=== PATIENT | male | born 1935 | race Caucasian/White ===

== ENCOUNTER 2018-09-01 08:55 | Inpatient (IN) ==
[2018-09-01] MEDS ORDERED: TUSSIONEX PENNKINETIC SUSP PO PRN (10:33)
[2018-09-01] MEDS ORDERED: NS 1/2 1000 ML IV 1,000 ML IV ONE (11:13)
[2018-09-01] MEDS: NS 1/2 1000 ML IV 1,000 ML IV SCH (11:17)
[2018-09-01 11:21] LABS: BASOPHILS # (AUTO) 0.1 X10^3/uL (0.0-0.1); BASOPHILS % (AUTO) 0.6 % (0.2-1.0); EOSINOPHILS # (AUTO) 0.1 x10^3/uL (0.0-0.2); EOSINOPHILS % (AUTO) 0.9 % (0.9-2.9); HEMATOCRIT 31.8 % (42.0-54.0); HEMOGLOBIN 9.6 g/dL (13.5-18.0); LYMPHOCYTES # (AUTO) 3.7 X10^3/uL (1.3-2.9); MEAN CORPUSCULAR HEMOGLOBIN 20.1 pg (27.0-34.0); MEAN CORPUSCULAR HGB CONC 30.1 g/dL (33.0-35.0); MEAN CORPUSCULAR VOLUME 66.9 fL (80.0-100.0); MEAN PLATELET VOLUME 7.1 fL (7.4-11.0); MONOCYTES # (AUTO) 0.4 x10^3/uL (0.3-0.8); MONOCYTES % (AUTO) 3.2 % (0.0-13.0); NEUTROPHILS % (AUTO) 65.3 % (42.0-75.0); PLATELET COUNT 317 X10^3/uL (150.0-450.0); RED BLOOD COUNT 4.76 X10^6/uL (4.7-6.0); RED CELL DISTRIBUTION WIDTH 20.3 % (11.6-16.5); WHITE BLOOD COUNT 12.2 X10^3/uL (3.6-10.0)
[2018-09-01 11:38] LABS: B-TYPE NATRIURETIC PEPTIDE 276 pg/mL (0-79)
[2018-09-01 11:39] LABS: ALANINE AMINOTRANSFERASE 20 Units/L (12-78); ALBUMIN 3.6 g/dL (3.4-5.0); ALKALINE PHOSPHATASE 148 Units/L (46-116); ASPARTATE AMINO TRANSFERASE 16 Units/L (15-37); BLOOD UREA NITROGEN 11 mg/dL (7-18); CALCIUM 8.8 mg/dL (8.5-10.1); CARBON DIOXIDE 29.7 mmol/L (21-32); CHLORIDE 99 mmol/L (98-107); CKMB % 3.1 % (<4); COR NA(FOR HYPERGLY) 141 mmol/L (136-145); CREATINE KINASE 32 Units/L (39-308); CREATINE KINASE MB < 1.0 ng/mL (0-4.0); CREATININE 1.03 mg/dL (0.70-1.30); SODIUM 141 mmol/L (136-145); TOTAL PROTEIN 7.2 g/dL (6.4-8.2); TROPONIN I < 0.02 ng/mL (0-1.5); eGFR NON BLACK RACES > 60 (>60)
[2018-09-01 11:51] LABS: ANISOCYTOSIS 1+; HYPOCHROMASIA 2+; MICROCYTOSIS 1+; PLATELET MORPHOLOGY COMMENT NORMAL (NORMAL)
[2018-09-01] MEDS: LASIX IVP SCH ×2 (11:51→20:49)
[2018-09-01] MEDS ORDERED: KLOR-CON PO PRN (11:55)
[2018-09-01] MEDS ORDERED: POTASSIUM CHL 40 MEQ/NS 0.45% 500 ML IV PRN (11:55)
[2018-09-01] MEDS ORDERED: POTASSIUM CHL 60 MEQ/NS 0.45% 500 ML IV PRN (11:55)
[2018-09-01] MEDS ORDERED: MICRO K EXTEN CAP 10 MEQ PO PRN (11:55)
[2018-09-01] MEDS ORDERED: POTASSIUM CHLORIDE LIQ 20 MEQ UDC PO PRN (11:55)
[2018-09-01] MEDS ORDERED: K-RIDER 10 MEQ/NS 100 ML 10 MEQ/100 ML BAG IV PRN (11:55)
[2018-09-01] MEDS: PROVENTIL NEB TX 0.083% 2.5MG/ 3ML NEB SCH ×2 (12:00→21:19)
[2018-09-01 12:07] LABS: ABG BASE EXCESS 6.8 mmol/L (-2.0-2.0)
[2018-09-01 12:08] LABS: ABG HCO3 31.3 mmol/L (22-26)
[2018-09-01] MEDS ORDERED: XOPENEX 1.25 MG/3 ML NEBULE NEB SCH (12:15)
--- NOTE | 2018-09-01 12:17 | RAD ---
Examination: Chest, PA and lateral views History: Pneumonia SOB Comparison reference chest CT, 04/22/2015 Findings: The heart is enlarged with ventricular hypertrophy. The lungs are hyperaerated and there is a diffuse bilateral interstitial process consistent with fibrosis. There is pleural scarring at the left diaphragm surface. Hiatal hernia is suggested. There is a 1.4 cm stellate density in the right upper lung. Impression: 1. Cardiomegaly. COPD/emphysema with pulmonary fibrosis. 2. Hiatal hernia. 3. Nodular density right upper lobe may represent 1st rib costal cartilage. Pulmonary nodule not excluded. Repeat AP and PA views of chest recommended to confirm or exclude pathology. Reported By:
[2018-09-01 12:24] VITALS: BMI 22.1
[2018-09-01] MEDS: LEVAQUIN PREMIX IV 500 MG 500 MG/100 ML BAG IV SCH (12:37)
[2018-09-01 15:00] LABS: CKMB % 3.3 % (<4); CREATINE KINASE 30 Units/L (39-308); CREATINE KINASE MB < 1.0 ng/mL (0-4.0); TROPONIN I < 0.02 ng/mL (0-1.5)
[2018-09-01] MEDS ORDERED: MAALOX or MYLANTA PO PRN (15:09)
[2018-09-01] MEDS: K-DUR TAB 20 MEQ PO PRN ×2 (15:18→20:49)
[2018-09-01] MEDS: ROBITUSSIN DM PO SCH ×2 (15:18→20:49)
[2018-09-01 19:06] LABS: CKMB % 3.3 % (<4); CREATINE KINASE MB 1.1 ng/mL (0-4.0); TROPONIN I 0.02 ng/mL (0-1.5)
[2018-09-02] MEDS: PROVENTIL NEB TX 0.083% 2.5MG/ 3ML NEB SCH ×6 (00:53→21:28)
[2018-09-02] MEDS ORDERED: NS 1/2 1000 ML IV 1,000 ML IV ONE (01:28)
[2018-09-02] MEDS: NS 1/2 1000 ML IV 1,000 ML IV SCH (01:57)
[2018-09-02 05:25] LABS: BASOPHILS % (AUTO) 0.3 % (0.2-1.0); EOSINOPHILS # (AUTO) 0.1 x10^3/uL (0.0-0.2); EOSINOPHILS % (AUTO) 1.2 % (0.9-2.9); HEMATOCRIT 25.2 % (42.0-54.0); HEMOGLOBIN 7.7 g/dL (13.5-18.0); LYMPHOCYTES # (AUTO) 2.8 X10^3/uL (1.3-2.9); LYMPHOCYTES % (AUTO) 28.9 % (21.0-51.0); MEAN CORPUSCULAR HEMOGLOBIN 20.6 pg (27.0-34.0); MEAN CORPUSCULAR HGB CONC 30.7 g/dL (33.0-35.0); MEAN CORPUSCULAR VOLUME 67.1 fL (80.0-100.0); MEAN PLATELET VOLUME 7.2 fL (7.4-11.0); MONOCYTES # (AUTO) 0.6 x10^3/uL (0.3-0.8); MONOCYTES % (AUTO) 5.7 % (0.0-13.0); NEUTROPHILS # (AUTO) 6.2 x10^3/uL (2.2-4.8); NEUTROPHILS % (AUTO) 63.9 % (42.0-75.0); PLATELET COUNT 242 X10^3/uL (150.0-450.0); RED BLOOD COUNT 3.76 X10^6/uL (4.7-6.0); RED CELL DISTRIBUTION WIDTH 19.6 % (11.6-16.5); WHITE BLOOD COUNT 9.7 X10^3/uL (3.6-10.0)
[2018-09-02 05:34] LABS: ALANINE AMINOTRANSFERASE 17 Units/L (12-78); ALBUMIN 2.7 g/dL (3.4-5.0); ALKALINE PHOSPHATASE 111 Units/L (46-116); ASPARTATE AMINO TRANSFERASE 13 Units/L (15-37); BLOOD UREA NITROGEN 10 mg/dL (7-18); CHLORIDE 102 mmol/L (98-107); CREATININE 0.98 mg/dL (0.70-1.30); SODIUM 139 mmol/L (136-145); TOTAL PROTEIN 5.6 g/dL (6.4-8.2); eGFR NON BLACK RACES > 60 (>60)
--- NOTE | 2018-09-02 05:47 | RAD ---
History: Shortness of breath Study: Portable AP chest Comparison: Yesterday Findings: The heart size is prominent. There is a small hiatal hernia as before. There is chronic diffuse interstitial lung disease. There is a focal density in the right upper lobe shown by prior chest CT of April 22, 2015 to be a nodule posteriorly in the right upper lobe. Impression: Chronic interstitial lung disease and some pulmonary fibrosis. Hiatal hernia. No acute disease. Reported By:
[2018-09-02 06:07] LABS: PLATELET MORPHOLOGY COMMENT NORMAL (NORMAL)
[2018-09-02 06:08] LABS: ANISOCYTOSIS SLIGHT; HYPOCHROMASIA 2+; MICROCYTOSIS 1+; POIKILOCYTOSIS 1+
[2018-09-02] MEDS: ROBITUSSIN DM PO SCH ×5 (08:20→21:52)
[2018-09-02] MEDS: LEVAQUIN PREMIX IV 500 MG 500 MG/100 ML BAG IV SCH (08:20)
--- NOTE | 2018-09-02 08:55 | DR.UPDATE ---
H&P Update History and Physical Update: WAS SEEN IN THE OFFICE TODAY FOR COMPLAINTS OF PERSISTENT, PRODUCTIVE COUGH AND SHORTNESS OF BREATH. HE WAS ADMITTED ON THE PNEUMONIA PROTOCOL FOR FURTHER EVALUATION AND TREATMENT. A H&P WAS COMPLETED PRIOR TO ADMISSION. PATIENT HAS BEEN SEEN AND EXAMINED WITH NO CHANGES NOTED TO H&P. Changes noted: NO Yes with the following:
[2018-09-02] MEDS ORDERED: TYLENOL 325 MG TAB PO PRN (10:13)
[2018-09-02] MEDS ORDERED: BENADRYL INJ 50 MG VIAL IVP PRN (10:13)
[2018-09-02] MEDS: PEPCID 20 MG IV PREMIX* 20 MG/50 ML BAG IV SCH ×2 (11:11→21:53)
[2018-09-02] MEDS: PROTONIX INJ 40 MG VIAL IVP SCH ×2 (11:11→21:44)
[2018-09-02] MEDS: FORTAZ or TAZICEF VIAL INJ IVP SCH ×3 (11:12→21:43)
[2018-09-02] MEDS: LEVSIN/MAALOX/LIDOC VISC PO SCH ×4 (11:12→21:51)
[2018-09-02] MEDS: SOLU-Medrol 40 MG VIAL IVP SCH ×3 (11:24→21:48)
[2018-09-02] MEDS: LASIX IVP SCH ×2 (11:39→21:48)
[2018-09-02] MEDS: PULMICORT NEB TX 0.5 MG NEB SCH ×2 (12:05→21:28)
[2018-09-02] MEDS: NS 500 ML IV 500 ML IV ONE (16:14)
[2018-09-02] MEDS ORDERED: CARDIZEM INJ 125 MG VIAL 125 MG in NS 100 ML IV 100 ML IV PRN (18:44)
[2018-09-02] MEDS ORDERED: CARDIZEM INJ 50 MG VIAL IVP ONE (21:07)
[2018-09-02] MEDS ORDERED: CARDIZEM INJ 50 MG VIAL ONE (21:27)
[2018-09-02] MEDS: ZOCOR TAB 20 MG PO SCH (21:53)
[2018-09-02] MEDS: FLOMAX PO SCH (21:53)
[2018-09-02] MEDS: NORVASC TAB 5 MG PO SCH (21:53)
[2018-09-02] MEDS: XARELTO PO SCH (22:35)
[2018-09-03] MEDS: XOPENEX 1.25 MG/3 ML NEBULE NEB SCH ×4 (00:37→17:37)
[2018-09-03 01:16] LABS: HEMATOCRIT 32.4 % (42.0-54.0); HEMOGLOBIN 10.2 g/dL (13.5-18.0)
--- NOTE | 2018-09-03 05:14 | RAD ---
Examination: Portable AP chest History: SOB Comparison 09/02/2018 Findings: There is no significant change since 1 day prior. Stable heart size, chronic interstitial fibrotic scarring, hiatal hernia and ill defined nodular density right upper lobe. Impression: No change. Reported By:
[2018-09-03] MEDS ORDERED: NS 1/2 1000 ML IV 1,000 ML IV ONE ×2 (05:59→19:29)
[2018-09-03] MEDS: FORTAZ or TAZICEF VIAL INJ IVP SCH ×3 (06:01→21:01)
[2018-09-03] MEDS: NS 1/2 1000 ML IV 1,000 ML IV SCH ×4 (06:03→19:34)
[2018-09-03] MEDS: SOLU-Medrol 40 MG VIAL IVP SCH ×3 (06:05→21:01)
[2018-09-03 06:09] LABS: BASOPHILS % (AUTO) 0 % (0.2-1.0); HEMATOCRIT 30.7 % (42.0-54.0); HEMOGLOBIN 9.8 g/dL (13.5-18.0); LYMPHOCYTES # (AUTO) 2.4 X10^3/uL (1.3-2.9); LYMPHOCYTES % (AUTO) 27.6 % (21.0-51.0); MEAN CORPUSCULAR HEMOGLOBIN 22.1 pg (27.0-34.0); MEAN CORPUSCULAR VOLUME 69.1 fL (80.0-100.0); MEAN PLATELET VOLUME 7.1 fL (7.4-11.0); MONOCYTES # (AUTO) 0.1 x10^3/uL (0.3-0.8); MONOCYTES % (AUTO) 0.9 % (0.0-13.0); NEUTROPHILS # (AUTO) 6.3 x10^3/uL (2.2-4.8); NEUTROPHILS % (AUTO) 71.5 % (42.0-75.0); PLATELET COUNT 229 X10^3/uL (150.0-450.0); RED BLOOD COUNT 4.45 X10^6/uL (4.7-6.0); WHITE BLOOD COUNT 8.8 X10^3/uL (3.6-10.0)
[2018-09-03 06:17] LABS: ALANINE AMINOTRANSFERASE 18 Units/L (12-78); ALBUMIN 2.9 g/dL (3.4-5.0); ALKALINE PHOSPHATASE 106 Units/L (46-116); ASPARTATE AMINO TRANSFERASE 15 Units/L (15-37); BLOOD UREA NITROGEN 14 mg/dL (7-18); CALCIUM 8.2 mg/dL (8.5-10.1); CARBON DIOXIDE 27.8 mmol/L (21-32); CHLORIDE 101 mmol/L (98-107); COR CA(FOR HYPOALB) 9.1 mg/dL (8.5-10.1); COR NA(FOR HYPERGLY) 138 mmol/L (136-145); CREATININE 0.94 mg/dL (0.70-1.30); SODIUM 137 mmol/L (136-145); TOTAL PROTEIN 5.8 g/dL (6.4-8.2); eGFR NON BLACK RACES > 60 (>60)
[2018-09-03 06:19] LABS: ANISOCYTOSIS 1+; HYPOCHROMASIA 1+; MICROCYTOSIS 1+; PLATELET MORPHOLOGY COMMENT NORMAL (NORMAL)
[2018-09-03] MEDS: K-DUR TAB 20 MEQ PO PRN (06:30)
[2018-09-03] MEDS ORDERED: NS 500 ML IV 500 ML IV ONE (09:02)
[2018-09-03] MEDS: LASIX IVP SCH ×2 (09:10→20:50)
[2018-09-03] MEDS: PEPCID 20 MG IV PREMIX* 20 MG/50 ML BAG IV SCH ×2 (09:10→20:49)
[2018-09-03] MEDS: NORVASC TAB 5 MG PO SCH (09:10)
[2018-09-03] MEDS: PROTONIX INJ 40 MG VIAL IVP SCH ×2 (09:10→20:50)
[2018-09-03] MEDS: ROBITUSSIN DM PO SCH ×4 (09:10→20:50)
[2018-09-03] MEDS: LEVSIN/MAALOX/LIDOC VISC PO SCH ×4 (09:10→20:50)
[2018-09-03] MEDS: LEVAQUIN PREMIX IV 500 MG 500 MG/100 ML BAG IV SCH (09:17)
[2018-09-03] MEDS: NS 500 ML IV 500 ML IV ONE (09:17)
[2018-09-03] MEDS: CARDIZEM SR 120 MG PO SCH ×2 (11:15→20:49)
[2018-09-03] MEDS: PULMICORT NEB TX 0.5 MG NEB SCH ×2 (11:54→21:45)
[2018-09-03] MEDS ORDERED: NS 50 ML IV 50 ML IV ONE ×2 (13:21→13:26)
--- NOTE | 2018-09-03 16:34 | CT ---
HISTORY: Shortness of breath Study: CT chest with contrast Comparison: Chest CT 04/22/2015 Technique: Multiple axial images of the chest were obtained from the thoracic inlet to the upper abdomen after the administration of IV contrast. Dose reduction techniques including Automated Exposure Control (AEC) and adjustment of mA and kV were utilized. Findings: There is cardiomegaly noted with atherosclerotic disease of coronary arteries. There are trace bilateral pleural effusions. There is large hiatal hernia partial intrathoracic stomach. There are advanced emphysematous changes present with probable air trapping. There is a spiculated mass at the right lung apex that measures 2.6 x 2.5 cm on axial image 22 that is new from prior study concerning for malignancy. No definite adenopathy or satellite nodules identified. Aorta is calcified with borderline aneurysmal dilation of the ascending aorta up to 4.1 cm measured on coronal image 20. No evidence of dissection. There are degenerative changes of the bony thorax with compression fractures at T3, T4 and L1 that are chronic. The visualized portions of the upper abdomen are grossly unremarkable. IMPRESSION: 1. Spiculated mass at the right lung apex measuring 2.6 x 2.5 cm. Cannot exclude malignancy. Further evaluation with PET scan and/or tissue sampling is recommended. 2. Advanced emphysematous disease with trace bilateral pleural effusions. 3. Cardiomegaly and coronary atherosclerotic disease. 4. 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 5. Large hiatal hernia. Reported By:
[2018-09-03] MEDS ORDERED: LANOXIN INJ IVP ONE (18:44)
[2018-09-03] MEDS: XARELTO PO SCH (19:17)
--- NOTE | 2018-09-03 19:23 | PCM.PROG ---
Progress Note - Progress Note for Day of Date of Exam: 09/02/18 - Subjective Subjective: WAS ADMITTED FOR CHF AND PNEUMONIA. TODAY, HE IS ALERT AND ORIENTED, LYING IN BED ON MORNING ROUNDS. HE CONTINUES WITH A PRODUCTIVE COUGH AND SHORTNESS OF BREATH. ON EXAMINATION, HE IS NOTED TO BE TACHYCARDIC. RHYTHM IS IRREGULAR. 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 BILATERAL LUNGS ARE NOTED WITH SCATTERED WHEEZING AND RHONCHI. ABDOMEN IS ROUND, SOFT, AND NON-TENDER WITH NORMAL BOWEL SOUNDS NOTED IN ALL QUADRANTS. HE IS NOTED WITH 1+ PITTING EDEMA TO LOWER EXTREMITIES. HIS VITLAS THIS MORNING ARE 98.1-92-18-95%-111-119/65. LABS WERE OBTAINED. ABNORMAL LAB VALUES INCLUDE THE FOLLOWING: RBC 3.76, HGB 7.7, HCT 25.2, CALCIUM 8.0, AST 13, TOTAL PROTEIN 5.6, ALBUMIN 2.7. SPUTUM AND BLOOD CULTURES ARE PENDING. A CHEST XRAY WAS OBTAINED TODAY AND REVEALED: The heart size is prominent. There is a small hiatal hernia as before. There is chronic diffuse interstitial lung disease. There is a focal density in the right upper lobe shown by prior chest CT of April 22, 2015 to be a nodule posteriorly in the right upper lobe. AN ECHO WAS OBTAINED YESTERDAY AND REVEALED AN EJECTION FRACTION OF 50%, MODERATELY ENLARGED RIGHT SIDE HEART WITH MOD/SEVERE TR. RIGHT SIDED HEART FAILURE. TODAY, WE WILL TRANSFUSE 2 UNITS OF PACKED RED BLOOD CELLS AND TRANSFER HIM TO THE INTENSIVE CARE UNIT AND PLACE ON A CARDIZEM DRIP. WE WILL START PEPCID AND PROTONIX IV, LASIX 20MG IV BID, SOLU-MEDROL 80MG IV TID, PULMICORT NEB TX, AND OBTAIN STOOLS FOR OCCULT BLOOD. OTHERWISE, WE WILL CONTINUE WITH IV HYDRATION AND ANTIBIOTICS. WE PLAN TO FOLLOW UP WITH AM LABS AND CONTINUE TO MONITOR. - Past Medical Family Social History Past Med/Fam/Surg Hx: No changes since H&P Allergies: Allergies No Known Drug Allergies Allergy (Verified 09/01/18 10:53) - Review of Systems ROS: No change since H&P - Vital Signs and I&O's Vital Signs: Temperature 98.8 F Pulse Rate [Left Brachial] 94 Pulse Rate 92 Respiratory Rate 24 Blood Pressure [Left Arm] 104/67 O2 Sat by Pulse Oximetry 95 Intake and Output: Intake & Output 02/07/19 02/08/19 02/09/19 02/10/19 11:59 11:59 11:59 11:59 Intake Total 704 / 704 2388.1 / 2388.1 1270 / 1270 Output Total 1775 / 1775 2851 / 2851 950 / 950 Balance -1071 / -1071 -462.9 / -462.9 320 / 320 - Physical Exam Oriented: Normal Eyes: Normal Ear: Normal Nose: Normal Throat: Normal Respiratory: Generalized, Wheezes, Rhonchi Cardiovascular: Tachycardia, Irregular, Edema : Normal Auscultation: Bowel Sounds: Normal Palpation: Normal Tenderness: Normal Skin: Normal Musculoskeletal: Normal Psychiatric: Normal Mood Description: Calm Affect: Normal Speech Pattern: Clear, Appropriate - Laboratory and Diagnostics Result Diagrams: 09/03/18 05:28 09/03/18 05:28 Labs: 09/01/18 11:00 Blood Blood Culture - Preliminary 09/01/18 11:05 Blood Blood Culture - Preliminary 09/01/18 13:24 Sputum - Expectorated Sputum Sputum Culture - Preliminary Klebsiella Pneumoniae 09/01/18 13:24 Sputum - Expectorated Sputum - Final Laboratory WBC 8.8 X10^3/uL (3.6-10.0) 09/03/18 05:28 RBC 4.45 X10^6/uL (4.7-6.0) L 09/03/18 05:28 Hgb 9.8 g/dL (13.5-18.0) L 09/03/18 05:28 Hct 30.7 % (42.0-54.0) L 09/03/18 05:28 MCV 69.1 fL (80.0-100.0) L 09/03/18 05:28 MCH 22.1 pg (27.0-34.0) L 09/03/18 05:28 MCHC 32.0 g/dL (33.0-35.0) L 09/03/18 05:28 RDW 22.0 % (11.6-16.5) H 09/03/18 05:28 Plt Count 229 X10^3/uL (150.0-450.0) 09/03/18 05:28 Plt Count Comment Adequate (ADEQUATE) 09/03/18 05:28 MPV 7.1 fL (7.4-11.0) L 09/03/18 05:28 Neut % (Auto) 71.5 % (42.0-75.0) 09/03/18 05:28 Lymph % (Auto) 27.6 % (21.0-51.0) 09/03/18 05:28 [place] % (Auto) 0.9 % (0.0-13.0) 09/03/18 05:28 Eos % (Auto) 0.0 % (0.9-2.9) L 09/03/18 05:28 Baso % (Auto) 0 % (0.2-1.0) L 09/03/18 05:28 Neut # (Auto) 6.3 x10^3/uL (2.2-4.8) H 09/03/18 05:28 Lymph # (Auto) 2.4 X10^3/uL (1.3-2.9) 09/03/18 05:28 [place] # (Auto) 0.1 x10^3/uL (0.3-0.8) L 09/03/18 05:28 Eos # (Auto) 0.0 x10^3/uL (0.0-0.2) 09/03/18 05:28 Baso # (Auto) 0.0 X10^3/uL (0.0-0.1) 09/03/18 05:28 Absolute Nucleated RBC 0.0 /100WBC 09/03/18 05:28 Plt Morphology Comment Normal (NORMAL) 09/03/18 05:28 RBC Morphology Abnormal (NORMAL) 09/03/18 05:28 Hypochromasia 1+ A 09/03/18 05:28 Poikilocytosis 1+ A 09/02/18 04:28 Anisocytosis 1+ A 09/03/18 05:28 Microcytosis 1+ A 09/03/18 05:28 Sample Site L br 09/01/18 12:02 ABG pH 7.470 (7.35-7.45) H 09/01/18 12:02 ABG pCO2 43.0 mmHg (35.0-45.0) 09/01/18 12:02 ABG pO2 61.0 mmHg (80.0-100.0) L 09/01/18 12:02 ABG HCO3 31.3 mmol/L (22-26) H* 09/01/18 12:02 ABG O2 Saturation 93.0 % (90-100) 09/01/18 12:02 ABG Base Excess 6.8 mmol/L (-2.0-2.0) H 09/01/18 12:02 Ck Test Na 09/01/18 12:02 A-a Gradient 35.0 mmHg 09/01/18 12:02 FiO2 21.0 09/01/18 12:02 Blood Gas Comments Loreta well gmb 09/01/18 12:02 Sodium 137 mmol/L (136-145) 09/03/18 05:28 Corrected Sodium 138 mmol/L (136-145) 09/03/18 05:28 Potassium 3.7 mmol/L (3.5-5.1) 09/03/18 05:28 Chloride 101 mmol/L (98-107) 09/03/18 05:28 Carbon Dioxide 27.8 mmol/L (21-32) 09/03/18 05:28 BUN 14 mg/dL (7-18) 09/03/18 05:28 Creatinine 0.94 mg/dL (0.70-1.30) 09/03/18 05:28 Est GFR (MDRD) Af Amer > 60 (>60) 09/03/18 05:28 Est GFR (MDRD) Non-Af > 60 (>60) 09/03/18 05:28 Glucose 154 mg/dL (65-99) H 09/03/18 05:28 Calcium 8.2 mg/dL (8.5-10.1) L 09/03/18 05:28 Corrected Calcium 9.1 mg/dL (8.5-10.1) 09/03/18 05:28 Magnesium 2.0 mg/dL (1.7-2.9) 09/01/18 11:00 Total Bilirubin 1.20 mg/dL (0.2-1.0) H 09/03/18 05:28 AST 15 Units/L (15-37) 09/03/18 05:28 ALT 18 Units/L (12-78) 09/03/18 05:28 Alkaline Phosphatase 106 Units/L (46-116) 09/03/18 05:28 Creatine Kinase 33 Units/L (39-308) L 09/01/18 18:33 CK-MB (CK-2) 1.1 ng/mL (0-4.0) 09/01/18 18:33 CK/CKMB % Calc 3.3 % (<4) 09/01/18 18:33 Troponin I 0.02 ng/mL (0-1.5) 09/01/18 18:33 B-Natriuretic Peptide 276 pg/mL (0-79) H 09/01/18 11:00 Total Protein 5.8 g/dL (6.4-8.2) L 09/03/18 05:28 Albumin 2.9 g/dL (3.4-5.0) L 09/03/18 05:28 Globulin 2.9 g/dL (2.5-4.5) 09/03/18 05:28 Albumin/Globulin Ratio 1.0 Ratio (1.1-2.1) L 09/03/18 05:28 Stool Description 75g,formed,soft,dark 09/03/18 09:50 Stl Occult Blood (IFOB) Negative (NEGATIVE) 09/03/18 09:50 Blood Type A POSITIVE 09/02/18 10:35 Antibody Screen Negative 09/02/18 10:35 Crossmatch See Detail 09/02/18 10:35 - Plan (1) Pneumonia Status: Acute Qualifiers: Pneumonia type: due to unspecified organism Laterality: unspecified laterality Lung location: unspecified part of lung Qualified Code(s): J18.9 - Pneumonia, unspecified organism Plan: IV FORTAZ, IV LEVAQUIN, RESPIRATORY TX, SUPPLEMENTAL OXYGEN, CONTINUE TO MONITOR (2) CHF (congestive heart failure) Status: Acute Qualifiers: Heart failure chronicity: acute on chronic Plan: LASIX 20MG IV BID, SUPPLEMENTAL OXYGEN, CONTINUE TO MONITOR (3) Atrial fibrillation Status: Acute Qualifiers: Atrial fibrillation type: chronic Qualified Code(s): I48.2 - Chronic atrial fibrillation Plan: CARDIZEM DRIP, DIGOXIN 500MCG IV X 1, CONTINUE TO MONITOR (4) Anemia Status: Acute Qualifiers: Anemia type: unspecified type Qualified Code(s): D64.9 - Anemia, unspecified Plan: TRANSFUSE 2 UNITS PRBC, CONTINUE TO MONITOR
[2018-09-03] MEDS: ZOCOR TAB 20 MG PO SCH (20:49)
[2018-09-03] MEDS: FLOMAX PO SCH (20:49)
--- NOTE | 2018-09-03 22:12 | PCM.PROG ---
Progress Note - Progress Note for Day of Date of Exam: 09/03/18 - Subjective Subjective: WAS ADMITTED FOR CHF AND PNEUMONIA. HE RECEIVED TWO UNITS OF BLOOD YESTERDAY FOR ANEMIA. TODAY, HE IS ALERT AND ORIENTED, LYING IN BED ON MORNING ROUNDS. HE CONTINUES WITH A PRODUCTIVE COUGH AND SHORTNESS OF BREATH, BUT REPORTS SLIGHT IMPROVEMENT SINCE YESTERDAY. ON EXAMINATION, HEART RATE IS IRREGULAR. 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 BILATERAL LUNGS CONTINUE WITH SCATTERED WHEEZING AND RHONCHI. ABDOMEN IS ROUND, SOFT, AND NON-TENDER WITH NORMAL BOWEL SOUNDS NOTED IN ALL QUADRANTS. HE IS NOTED TRACE EDEMA TO LOWER EXTREMITIES. HIS VITALS THIS MORNING ARE 98.1-85-18-95%-122/70. LABS WERE OBTAINED. ABNORMAL LAB VALUES INCLUDE THE F OLLOWING: RBC 4.45, HGB 9.8, HCT 30.7, GLUCOSE 154, CALCIUM 8.2, TOTAL BILI 1.20, TOTAL PROTEIN 5.8, ALBUMIN 2.9. SPUTUM CULTURE REPORTS GROWTH OF KLEBSIELLA PNEUMONIAE. IT IS SENSITIVE TO THE ANTIBIOTICS THAT HE IS CURRENTLY RECEIVING. BLOOD CULTURES ARE PENDING. A CHEST XRAY WAS OBTAINED TODAY AND REPORTED NO CHANGE. TODAY, WE WILL DISCONTINUE THE CARDIZEM DRIP AND START CARDIZEM 120MG PO BID, DIGOXIN 0.125MG. WE WILL OBTAIN A CHEST CT WITH CONTRAST TODAY. OTHERWISE, WE WILL CONTINUE WITH IV HYDRATION AND ANTIBIOTICS. WE PLAN TO FOLLOW UP WITH AM LABS AND CONTINUE TO MONITOR. - Past Medical Family Social History Past Med/Fam/Surg Hx: No changes since H&P Allergies: Allergies No Known Drug Allergies Allergy (Verified 09/01/18 10:53) - Review of Systems ROS: No change since H&P - Vital Signs and I&O's Vital Signs: Temperature 98.6 F Pulse Rate [Left Brachial] 88 Pulse Rate 90 Respiratory Rate 23 Blood Pressure [Left Arm] 115/69 O2 Sat by Pulse Oximetry 94 Intake and Output: Intake & Output 09/01/18 09/02/18 09/03/18 09/04/18 11:59 11:59 11:59 11:59 Intake Total 704 / 704 2388.1 / 2388.1 1270 / 1270 Output Total 1775 / 1775 2851 / 2851 950 / 950 Balance -1071 / -1071 -462.9 / -462.9 320 / 320 - Physical Exam Oriented: Normal Eyes: Normal Ear: Normal Nose: Normal Throat: Normal Respiratory: Generalized, Wheezes, Rhonchi Cardiovascular: Tachycardia, Irregular, Edema : Normal Auscultation: Bowel Sounds: Normal Palpation: Normal Tenderness: Normal Skin: Normal Musculoskeletal: Normal Psychiatric: Normal Mood Description: Calm Affect: Normal Speech Pattern: Clear, Appropriate - Laboratory and Diagnostics Result Diagrams: 09/03/18 05:28 09/03/18 05:28 Labs: 09/01/18 11:00 Blood Blood Culture - Preliminary 09/01/18 11:05 Blood Blood Culture - Preliminary 09/01/18 13:24 Sputum - Expectorated Sputum Sputum Culture - Preliminary Klebsiella Pneumoniae 09/01/18 13:24 Sputum - Expectorated Sputum - Final Laboratory WBC 8.8 X10^3/uL (3.6-10.0) 09/03/18 05:28 RBC 4.45 X10^6/uL (4.7-6.0) L 09/03/18 05:28 Hgb 9.8 g/dL (13.5-18.0) L 09/03/18 05:28 Hct 30.7 % (42.0-54.0) L 09/03/18 05:28 MCV 69.1 fL (80.0-100.0) L 09/03/18 05:28 MCH 22.1 pg (27.0-34.0) L 09/03/18 05:28 MCHC 32.0 g/dL (33.0-35.0) L 09/03/18 05:28 RDW 22.0 % (11.6-16.5) H 09/03/18 05:28 Plt Count 229 X10^3/uL (150.0-450.0) 09/03/18 05:28 Plt Count Comment Adequate (ADEQUATE) 09/03/18 05:28 MPV 7.1 fL (7.4-11.0) L 09/03/18 05:28 Neut % (Auto) 71.5 % (42.0-75.0) 09/03/18 05:28 Lymph % (Auto) 27.6 % (21.0-51.0) 09/03/18 05:28 [place] % (Auto) 0.9 % (0.0-13.0) 09/03/18 05:28 Eos % (Auto) 0.0 % (0.9-2.9) L 09/03/18 05:28 Baso % (Auto) 0 % (0.2-1.0) L 09/03/18 05:28 Neut # (Auto) 6.3 x10^3/uL (2.2-4.8) H 09/03/18 05:28 Lymph # (Auto) 2.4 X10^3/uL (1.3-2.9) 09/03/18 05:28 [place] # (Auto) 0.1 x10^3/uL (0.3-0.8) L 09/03/18 05:28 Eos # (Auto) 0.0 x10^3/uL (0.0-0.2) 09/03/18 05:28 Baso # (Auto) 0.0 X10^3/uL (0.0-0.1) 09/03/18 05:28 Absolute Nucleated RBC 0.0 /100WBC 09/03/18 05:28 Plt Morphology Comment Normal (NORMAL) 09/03/18 05:28 RBC Morphology Abnormal (NORMAL) 09/03/18 05:28 Hypochromasia 1+ A 09/03/18 05:28 Poikilocytosis 1+ A 09/02/18 04:28 Anisocytosis 1+ A 09/03/18 05:28 Microcytosis 1+ A 09/03/18 05:28 Sample Site L br 09/01/18 12:02 ABG pH 7.470 (7.35-7.45) H 09/01/18 12:02 ABG pCO2 43.0 mmHg (35.0-45.0) 09/01/18 12:02 ABG pO2 61.0 mmHg (80.0-100.0) L 09/01/18 12:02 ABG HCO3 31.3 mmol/L (22-26) H* 09/01/18 12:02 ABG O2 Saturation 93.0 % (90-100) 09/01/18 12:02 ABG Base Excess 6.8 mmol/L (-2.0-2.0) H 09/01/18 12:02 Ck Test Na 09/01/18 12:02 A-a Gradient 35.0 mmHg 09/01/18 12:02 FiO2 21.0 09/01/18 12:02 Blood Gas Comments Loreta well gmb 09/01/18 12:02 Sodium 137 mmol/L (136-145) 09/03/18 05:28 Corrected Sodium 138 mmol/L (136-145) 09/03/18 05:28 Potassium 3.7 mmol/L (3.5-5.1) 09/03/18 05:28 Chloride 101 mmol/L (98-107) 09/03/18 05:28 Carbon Dioxide 27.8 mmol/L (21-32) 09/03/18 05:28 BUN 14 mg/dL (7-18) 09/03/18 05:28 Creatinine 0.94 mg/dL (0.70-1.30) 09/03/18 05:28 Est GFR (MDRD) Af Amer > 60 (>60) 09/03/18 05:28 Est GFR (MDRD) Non-Af > 60 (>60) 09/03/18 05:28 Glucose 154 mg/dL (65-99) H 09/03/18 05:28 Calcium 8.2 mg/dL (8.5-10.1) L 09/03/18 05:28 Corrected Calcium 9.1 mg/dL (8.5-10.1) 09/03/18 05:28 Magnesium 2.0 mg/dL (1.7-2.9) 09/01/18 11:00 Total Bilirubin 1.20 mg/dL (0.2-1.0) H 09/03/18 05:28 AST 15 Units/L (15-37) 09/03/18 05:28 ALT 18 Units/L (12-78) 09/03/18 05:28 Alkaline Phosphatase 106 Units/L (46-116) 09/03/18 05:28 Creatine Kinase 33 Units/L (39-308) L 09/01/18 18:33 CK-MB (CK-2) 1.1 ng/mL (0-4.0) 09/01/18 18:33 CK/CKMB % Calc 3.3 % (<4) 09/01/18 18:33 Troponin I 0.02 ng/mL (0-1.5) 02/07/19 18:33 B-Natriuretic Peptide 276 pg/mL (0-79) H 09/01/18 11:00 Total Protein 5.8 g/dL (6.4-8.2) L 09/03/18 05:28 Albumin 2.9 g/dL (3.4-5.0) L 09/03/18 05:28 Globulin 2.9 g/dL (2.5-4.5) 09/03/18 05:28 Albumin/Globulin Ratio 1.0 Ratio (1.1-2.1) L 09/03/18 05:28 Stool Description 75g,formed,soft,dark 09/03/18 09:50 Stl Occult Blood (IFOB) Negative (NEGATIVE) 09/03/18 09:50 Blood Type A POSITIVE 09/02/18 10:35 Antibody Screen Negative 09/02/18 10:35 Crossmatch See Detail 09/02/18 10:35 - Plan (1) Pneumonia Status: Acute Qualifiers: Pneumonia type: due to Klebsiella pneumoniae Laterality: unspecified laterality Lung location: unspecified part of lung Qualified Code(s): J15.0 - Pneumonia due to Klebsiella pneumoniae Plan: IV FORTAZ, IV LEVAQUIN, RESPIRATORY TX, SUPPLEMENTAL OXYGEN, CONTINUE TO MONITOR (2) CHF (congestive heart failure) Status: Acute Qualifiers: Heart failure chronicity: acute on chronic Plan: LASIX 20MG IV BID, SUPPLEMENTAL OXYGEN, CONTINUE TO MONITOR (3) Atrial fibrillation Status: Acute Qualifiers: Atrial fibrillation type: chronic Qualified Code(s): I48.2 - Chronic atrial fibrillation Plan: CARDIZEM 120MG PO BID, DIGOXIN 0.125MG PO DAILY, CONTINUE TO MONITOR (4) Anemia Status: Acute Qualifiers: Anemia type: unspecified type Qualified Code(s): D64.9 - Anemia, unspecified Plan: CONTINUE TO MONITOR
[2018-09-04] MEDS: XOPENEX 1.25 MG/3 ML NEBULE NEB SCH ×4 (01:25→18:02)
[2018-09-04] MEDS: ROBITUSSIN DM PO SCH ×5 (02:14→20:40)
[2018-09-04] MEDS: SOLU-Medrol 40 MG VIAL IVP SCH ×3 (05:10→21:10)
[2018-09-04] MEDS: FORTAZ or TAZICEF VIAL INJ IVP SCH ×3 (05:10→21:10)
[2018-09-04 05:56] LABS: BASOPHILS % (AUTO) 0.1 % (0.2-1.0); HEMATOCRIT 31.3 % (42.0-54.0); HEMOGLOBIN 9.7 g/dL (13.5-18.0); LYMPHOCYTES # (AUTO) 2.6 X10^3/uL (1.3-2.9); LYMPHOCYTES % (AUTO) 20.2 % (21.0-51.0); MEAN CORPUSCULAR HEMOGLOBIN 21.7 pg (27.0-34.0); MEAN CORPUSCULAR HGB CONC 30.9 g/dL (33.0-35.0); MEAN CORPUSCULAR VOLUME 70.3 fL (80.0-100.0); MEAN PLATELET VOLUME 7.2 fL (7.4-11.0); MONOCYTES # (AUTO) 0.3 x10^3/uL (0.3-0.8); MONOCYTES % (AUTO) 2.4 % (0.0-13.0); NEUTROPHILS % (AUTO) 77.3 % (42.0-75.0); PLATELET COUNT 226 X10^3/uL (150.0-450.0); RED BLOOD COUNT 4.46 X10^6/uL (4.7-6.0); RED CELL DISTRIBUTION WIDTH 22.1 % (11.6-16.5); WHITE BLOOD COUNT 12.9 X10^3/uL (3.6-10.0)
[2018-09-04 06:18] LABS: ALANINE AMINOTRANSFERASE 30 Units/L (12-78); ALBUMIN 2.8 g/dL (3.4-5.0); ALKALINE PHOSPHATASE 92 Units/L (46-116); ASPARTATE AMINO TRANSFERASE 31 Units/L (15-37); BLOOD UREA NITROGEN 20 mg/dL (7-18); CALCIUM 8.2 mg/dL (8.5-10.1); CARBON DIOXIDE 28.9 mmol/L (21-32); CHLORIDE 102 mmol/L (98-107); COR CA(FOR HYPOALB) 9.2 mg/dL (8.5-10.1); COR NA(FOR HYPERGLY) 138 mmol/L (136-145); CREATININE 1.17 mg/dL (0.70-1.30); DIGOXIN 0.93 ng/mL (0.9-2); SODIUM 137 mmol/L (136-145); TOTAL PROTEIN 5.6 g/dL (6.4-8.2); eGFR NON BLACK RACES > 60 (>60)
[2018-09-04 06:39] LABS: ANISOCYTOSIS 2+; HYPOCHROMASIA 2+; PLATELET MORPHOLOGY COMMENT NORMAL (NORMAL)
[2018-09-04] MEDS ORDERED: NS 1/2 1000 ML IV 1,000 ML IV ONE ×2 (07:51→23:55)
--- NOTE | 2018-09-04 08:16 | RAD ---
HISTORY: Shortness of breath Study: Single-view chest, done portably Comparison: CT chest done 09/03/2018. Findings: Trachea is midline. Heart size is upper normal with aortic uncoiling. There is hyperinflation of the lungs with increased interstitial markings bilaterally and emphysematous changes present involving the lung apices. Findings have the appearance of COPD. There is again a spiculated mass in the right upper lobe measuring about 2 x 2.4 cm. There is atherosclerotic calcification of the aortic arch. No consolidation is seen. The small pleural effusions noted on the recent CT are not large enough to be radiographically apparent. Osseous structures are intact. IMPRESSION: COPD with stellate mass in the right upper lobe region. Reported By:
[2018-09-04] MEDS: LANOXIN PO SCH (08:36)
[2018-09-04] MEDS: LEVSIN/MAALOX/LIDOC VISC PO SCH ×4 (08:36→20:42)
[2018-09-04] MEDS: CARDIZEM SR 120 MG PO SCH ×2 (08:36→20:42)
[2018-09-04] MEDS: PEPCID 20 MG IV PREMIX* 20 MG/50 ML BAG IV SCH ×2 (08:36→20:41)
[2018-09-04] MEDS: LASIX IVP SCH ×2 (08:36→20:41)
[2018-09-04] MEDS: NORVASC TAB 5 MG PO SCH (08:37)
[2018-09-04] MEDS: NS 1/2 1000 ML IV 1,000 ML IV SCH (08:38)
[2018-09-04] MEDS: LEVAQUIN PREMIX IV 500 MG 500 MG/100 ML BAG IV SCH (08:38)
[2018-09-04] MEDS: PROTONIX INJ 40 MG VIAL IVP SCH ×2 (08:41→20:42)
[2018-09-04] MEDS: PULMICORT NEB TX 0.5 MG NEB SCH ×2 (11:55→21:07)
[2018-09-04] MEDS: XARELTO PO SCH (17:25)
--- NOTE | 2018-09-04 19:30 | PCM.PROG ---
Progress Note - Progress Note for Day of Date of Exam: 09/04/18 - Subjective Subjective: WAS ADMITTED FOR CHF AND PNEUMONIA. HE HAS RECEIVED TWO UNITS OF BLOOD SINCE ADMISSION. TODAY, HE IS ALERT AND ORIENTED, LYING IN BED ON MORNING ROUNDS. HE CONTINUES WITH A PRODUCTIVE COUGH AND SHORTNESS OF BREATH. ON EXAMINATION, HEART RATE IS IRREGULAR. 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 BILATERAL LUNGS CONTINUE WITH SCATTERED WHEEZING AND RHONCHI. ABDOMEN IS ROUND, SOFT, AND NON-TENDER WITH NORMAL BOWEL SOUNDS NOTED IN ALL QUADRANTS. HE IS NOTED TRACE EDEMA TO LOWER EXTREMITIES. HIS VITALS THIS MORNING ARE 98.7-90-19-94%-133/61. LABS WERE OBTAINED. ABNORMAL LAB VALUES INCLUDE THE FOLLOWING: WBC 12.9, RBC 4.46, HGB 9.7, HCT 31.3, BUN 20, GLUCOSE 130, CALCIUM 8.2, TOTAL PROTEIN 5.6, ALBUMIN 2.8. SPUTUM CULTURE REPORTS GROWTH OF KLEBSIELLA PNEUMONIAE AND SERRATIA MARCESCENS. BOTH ARE SENSITIVE TO THE ANTIBIOTICS THAT HE IS CURRENTLY RECEIVING. BLOOD CULTURES ARE PENDING, BUT REPORT GROWTH OF GRAM POSITIVE COCCI. A CHEST XRAY WAS OBTAINED TODAY AND REPORTED COPD with stellate mass in the right upper lobe region. WE OBTAINED A CHEST CT WITH CONTRAST YESTERDAY. IT REVEALED: Spiculated mass at the right lung apex measuring 2.6 x 2.5 cm. Cannot exclude malignancy. Further evaluation with PET scan and/or tissue sampling is recommended. Advanced emphysematous disease with trace bilateral pleural effusions. Cardiomegaly and coronary atherosclerotic disease. 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 Large hiatal hernia. WE DISCUSSED FINDINGS WITH PATIENTS FAMILY. TODAY, WE WILL CONTINUE WITH IV HYDRATION AND ANTIBIOTICS. WE PLAN TO FOLLOW UP WITH AM LABS AND CONTINUE TO MONITOR. - Past Medical Family Social History Past Med/Fam/Surg Hx: No changes since H&P Allergies: Allergies No Known Drug Allergies Allergy (Verified 09/01/18 10:53) - Review of Systems ROS: No change since H&P - Vital Signs and I&O's Vital Signs: Temperature 97.8 F Pulse Rate [Left Brachial] 83 Pulse Rate 83 Respiratory Rate 20 Blood Pressure [Left Arm] 116/68 O2 Sat by Pulse Oximetry 94 Intake and Output: Intake & Output 09/02/18 09/03/18 09/04/1811/19 11:59 11:59 11:59 11:59 Intake Total 704 / 704 2388.1 / 2388.1 3385 / 3385 1000 / 1000 Output Total 1775 / 1775 2851 / 2851 3030 / 3030 Balance -1071 / -1071 -462.9 / -462.9 355 / 355 1000 / 1000 - Physical Exam Oriented: Normal Eyes: Normal Ear: Normal Nose: Normal Throat: Normal Respiratory: Generalized, Wheezes, Rhonchi Cardiovascular: Tachycardia, Irregular, Edema : Normal Auscultation: Bowel Sounds: Normal Palpation: Normal Tenderness: Normal Skin: Normal Musculoskeletal: Normal Psychiatric: Normal Mood Description: Calm Affect: Normal Speech Pattern: Clear, Appropriate - Laboratory and Diagnostics Result Diagrams: 09/04/18 05:25 09/04/18 05:25 Labs: 09/01/18 11:05 Blood Blood Culture - Preliminary 09/01/18 13:24 Sputum - Expectorated Sputum Sputum Culture - Final Klebsiella Pneumoniae Serratia Marcescens 09/01/18 13:24 Sputum - Expectorated Sputum - Final 09/01/18 11:00 Blood Blood Culture - Preliminary Laboratory WBC 12.9 X10^3/uL (3.6-10.0) H 09/04/18 05:25 RBC 4.46 X10^6/uL (4.7-6.0) L 09/04/18 05:25 Hgb 9.7 g/dL (13.5-18.0) L 09/04/18 05:25 Hct 31.3 % (42.0-54.0) L 09/04/18 05:25 MCV 70.3 fL (80.0-100.0) L 09/04/18 05:25 MCH 21.7 pg (27.0-34.0) L 09/04/18 05:25 MCHC 30.9 g/dL (33.0-35.0) L 09/04/18 05:25 RDW 22.1 % (11.6-16.5) H 09/04/18 05:25 Plt Count 226 X10^3/uL (150.0-450.0) 09/04/18 05:25 Plt Count Comment Adequate (ADEQUATE) 09/04/18 05:25 MPV 7.2 fL (7.4-11.0) L 09/04/18 05:25 Neut % (Auto) 77.3 % (42.0-75.0) H 09/04/18 05:25 Lymph % (Auto) 20.2 % (21.0-51.0) L 09/04/18 05:25 [place] % (Auto) 2.4 % (0.0-13.0) 09/04/18 05:25 Eos % (Auto) 0.0 % (0.9-2.9) L 09/04/18 05:25 Baso % (Auto) 0.1 % (0.2-1.0) L 09/04/18 05:25 Neut # (Auto) 10.0 x10^3/uL (2.2-4.8) H 09/04/18 05:25 Lymph # (Auto) 2.6 X10^3/uL (1.3-2.9) 09/04/18 05:25 [place] # (Auto) 0.3 x10^3/uL (0.3-0.8) 09/04/18 05:25 Eos # (Auto) 0.0 x10^3/uL (0.0-0.2) 09/04/18 05:25 Baso # (Auto) 0.0 X10^3/uL (0.0-0.1) 09/04/18 05:25 Absolute Nucleated RBC 0.1 /100WBC 09/04/18 05:25 Plt Morphology Comment Normal (NORMAL) 09/04/18 05:25 RBC Morphology Abnormal (NORMAL) 09/04/18 05:25 Hypochromasia 2+ A 09/04/18 05:25 Poikilocytosis 1+ A 09/02/18 04:28 Anisocytosis 2+ A 09/04/18 05:25 Microcytosis 1+ A 09/03/18 05:28 Sample Site L br 09/01/18 12:02 ABG pH 7.470 (7.35-7.45) H 09/01/18 12:02 ABG pCO2 43.0 mmHg (35.0-45.0) 09/01/18 12:02 ABG pO2 61.0 mmHg (80.0-100.0) L 09/01/18 12:02 ABG HCO3 31.3 mmol/L (22-26) H* 09/01/18 12:02 ABG O2 Saturation 93.0 % (90-100) 09/01/18 12:02 ABG Base Excess 6.8 mmol/L (-2.0-2.0) H 09/01/18 12:02 Ck Test Na 09/01/18 12:02 A-a Gradient 35.0 mmHg 09/01/18 12:02 FiO2 21.0 09/01/18 12:02 Blood Gas Comments Loreta well [facility] 09/01/18 12:02 Sodium 137 mmol/L (136-145) 09/04/18 05:25 Corrected Sodium 138 mmol/L (136-145) 09/04/18 05:25 Potassium 4.0 mmol/L (3.5-5.1) 09/04/18 05:25 Chloride 102 mmol/L (98-107) 09/04/18 05:25 Carbon Dioxide 28.9 mmol/L (21-32) 09/04/18 05:25 BUN 20 mg/dL (7-18) H 09/04/18 05:25 Creatinine 1.17 mg/dL (0.70-1.30) 09/04/18 05:25 Est GFR (MDRD) Af Amer > 60 (>60) 09/04/18 05:25 Est GFR (MDRD) Non-Af > 60 (>60) 09/04/18 05:25 Glucose 130 mg/dL (65-99) H 09/04/18 05:25 Calcium 8.2 mg/dL (8.5-10.1) L 09/04/18 05:25 Corrected Calcium 9.2 mg/dL (8.5-10.1) 09/04/18 05:25 Magnesium 2.0 mg/dL (1.7-2.9) 09/01/18 11:00 Total Bilirubin 0.60 mg/dL (0.2-1.0) 09/04/18 05:25 AST 31 Units/L (15-37) 09/04/18 05:25 ALT 30 Units/L (12-78) 09/04/18 05:25 Alkaline Phosphatase 92 Units/L (46-116) 09/04/18 05:25 Creatine Kinase 33 Units/L (39-308) L 09/01/18 18:33 CK-MB (CK-2) 1.1 ng/mL (0-4.0) 09/01/18 18:33 CK/CKMB % Calc 3.3 % (<4) 09/01/18 18:33 Troponin I 0.02 ng/mL (0-1.5) 09/01/18 18:33 B-Natriuretic Peptide 276 pg/mL (0-79) H 09/01/18 11:00 Total Protein 5.6 g/dL (6.4-8.2) L 09/04/18 05:25 Albumin 2.8 g/dL (3.4-5.0) L 09/04/18 05:25 Globulin 2.8 g/dL (2.5-4.5) 09/04/18 05:25 Albumin/Globulin Ratio 1.0 Ratio (1.1-2.1) L 09/04/18 05:25 Stool Description 75g,formed,soft,dark 09/03/18 09:50 Stl Occult Blood (IFOB) Negative (NEGATIVE) 09/03/18 09:50 Digoxin 0.93 ng/mL (0.9-2) 09/04/18 05:25 Blood Type A POSITIVE 09/02/18 10:35 Antibody Screen Negative 09/02/18 10:35 Crossmatch See Detail 09/02/18 10:35 - Plan (1) Pneumonia Status: Acute Qualifiers: Pneumonia type: due to Klebsiella pneumoniae Laterality: unspecified laterality Lung location: unspecified part of lung Qualified Code(s): J15.0 - Pneumonia due to Klebsiella pneumoniae Plan: IV FORTAZ, IV LEVAQUIN, RESPIRATORY TX, SUPPLEMENTAL OXYGEN, CONTINUE TO MONITOR (2) CHF (congestive heart failure) Status: Acute Qualifiers: Heart failure chronicity: acute on chronic Plan: LASIX 20MG IV BID, SUPPLEMENTAL OXYGEN, CONTINUE TO MONITOR (3) Atrial fibrillation Status: Acute Qualifiers: Atrial fibrillation type: chronic Qualified Code(s): I48.2 - Chronic atrial fibrillation Plan: CARDIZEM 120MG PO BID, DIGOXIN 0.125MG PO DAILY, CONTINUE TO MONITOR (4) Anemia Status: Acute Qualifiers: Anemia type: unspecified type Qualified Code(s): D64.9 - Anemia, unspecified Plan: CONTINUE TO MONITOR (5) Lung mass Status: Acute Plan: CONTINUE TO MONITOR
[2018-09-04] MEDS: FLOMAX PO SCH (20:42)
[2018-09-04] MEDS: ZOCOR TAB 20 MG PO SCH (20:42)
[2018-09-05] MEDS: NS 1/2 1000 ML IV 1,000 ML IV SCH ×3 (00:28→15:10)
[2018-09-05] MEDS: XOPENEX 1.25 MG/3 ML NEBULE NEB SCH ×4 (01:08→17:00)
[2018-09-05] MEDS: FORTAZ or TAZICEF VIAL INJ IVP SCH ×3 (05:14→21:28)
[2018-09-05] MEDS: SOLU-Medrol 40 MG VIAL IVP SCH (05:15)
[2018-09-05 06:36] LABS: BASOPHILS % (AUTO) 0 % (0.2-1.0); HEMATOCRIT 30.9 % (42.0-54.0); HEMOGLOBIN 9.6 g/dL (13.5-18.0); LYMPHOCYTES # (AUTO) 3.5 X10^3/uL (1.3-2.9); LYMPHOCYTES % (AUTO) 27.3 % (21.0-51.0); MEAN CORPUSCULAR HEMOGLOBIN 21.7 pg (27.0-34.0); MEAN CORPUSCULAR HGB CONC 30.9 g/dL (33.0-35.0); MEAN CORPUSCULAR VOLUME 70.1 fL (80.0-100.0); MEAN PLATELET VOLUME 7.3 fL (7.4-11.0); MONOCYTES # (AUTO) 0.2 x10^3/uL (0.3-0.8); MONOCYTES % (AUTO) 1.7 % (0.0-13.0); PLATELET COUNT 233 X10^3/uL (150.0-450.0); RED BLOOD COUNT 4.41 X10^6/uL (4.7-6.0); RED CELL DISTRIBUTION WIDTH 22.1 % (11.6-16.5); WHITE BLOOD COUNT 12.7 X10^3/uL (3.6-10.0)
--- NOTE | 2018-09-05 06:36 | RAD ---
HISTORY: 82-year-old male with pneumonia. Study: Frontal view of the chest. Comparison: Chest radiograph 09/04/2018, CT chest 09/03/2018. Findings: Monitoring leads overlie the chest, predominantly right side, which degrades the examination. Unchanged irregular opacity right upper lung. The trachea is midline. The cardiac silhouette is stably enlarged with continued prominence perihilar lung markings and interstitium with small bilateral effusions and basilar atelectasis. The lungs are clear without focal consolidation, effusion or pneumothorax. Soft tissues are unremarkable. Osseous structures are unremarkable. IMPRESSION: 1. Stable cardiomegaly, right upper lobe mass and bilateral effusions with COPD. Correlate clinically for underlying infection. Reported By:
[2018-09-05 06:45] LABS: ALANINE AMINOTRANSFERASE 49 Units/L (12-78); ALBUMIN 2.9 g/dL (3.4-5.0); ALKALINE PHOSPHATASE 84 Units/L (46-116); ASPARTATE AMINO TRANSFERASE 41 Units/L (15-37); BLOOD UREA NITROGEN 24 mg/dL (7-18); CALCIUM 8.2 mg/dL (8.5-10.1); CARBON DIOXIDE 28.7 mmol/L (21-32); CHLORIDE 101 mmol/L (98-107); COR CA(FOR HYPOALB) 9.1 mg/dL (8.5-10.1); COR NA(FOR HYPERGLY) 138 mmol/L (136-145); CREATININE 1.19 mg/dL (0.70-1.30); SODIUM 137 mmol/L (136-145); TOTAL PROTEIN 5.6 g/dL (6.4-8.2); eGFR NON BLACK RACES > 60 (>60)
[2018-09-05 07:07] LABS: ANISOCYTOSIS 2+; HYPOCHROMASIA 2+; PLATELET MORPHOLOGY COMMENT NORMAL (NORMAL)
[2018-09-05] MEDS: LEVAQUIN PREMIX IV 500 MG 500 MG/100 ML BAG IV SCH (09:12)
[2018-09-05] MEDS: PROTONIX INJ 40 MG VIAL IVP SCH ×2 (09:13→20:26)
[2018-09-05] MEDS: PEPCID 20 MG IV PREMIX* 20 MG/50 ML BAG IV SCH ×2 (09:13→20:55)
[2018-09-05] MEDS: LEVSIN/MAALOX/LIDOC VISC PO SCH ×4 (09:13→20:27)
[2018-09-05] MEDS: CARDIZEM SR 120 MG PO SCH ×2 (09:14→20:27)
[2018-09-05] MEDS: LANOXIN PO SCH (09:14)
[2018-09-05] MEDS: ROBITUSSIN DM PO SCH ×4 (09:14→20:28)
[2018-09-05] MEDS: LASIX IVP SCH ×3 (09:15→20:55)
[2018-09-05] MEDS: NORVASC TAB 5 MG PO SCH (09:15)
[2018-09-05] MEDS: PULMICORT NEB TX 0.5 MG NEB SCH ×2 (11:58→21:20)
[2018-09-05] MEDS ORDERED: NS 1/2 1000 ML IV 1,000 ML IV ONE (15:04)
[2018-09-05] MEDS: XARELTO PO SCH (17:52)
[2018-09-05] MEDS: FLOMAX PO SCH (20:27)
[2018-09-05] MEDS: ZOCOR TAB 20 MG PO SCH (20:27)
[2018-09-06] MEDS: XOPENEX 1.25 MG/3 ML NEBULE NEB SCH ×2 (01:09→05:44)
[2018-09-06] MEDS: NS 1/2 1000 ML IV 1,000 ML IV SCH (05:24)
[2018-09-06] MEDS: FORTAZ or TAZICEF VIAL INJ IVP SCH ×2 (05:26→14:28)
[2018-09-06 06:21] LABS: BASOPHILS % (AUTO) 0 % (0.2-1.0); HEMATOCRIT 31.7 % (42.0-54.0); HEMOGLOBIN 9.9 g/dL (13.5-18.0); LYMPHOCYTES # (AUTO) 4.5 X10^3/uL (1.3-2.9); LYMPHOCYTES % (AUTO) 33.3 % (21.0-51.0); MEAN CORPUSCULAR HEMOGLOBIN 21.9 pg (27.0-34.0); MEAN CORPUSCULAR HGB CONC 31.3 g/dL (33.0-35.0); MEAN PLATELET VOLUME 7.1 fL (7.4-11.0); MONOCYTES # (AUTO) 0.5 x10^3/uL (0.3-0.8); MONOCYTES % (AUTO) 3.5 % (0.0-13.0); NEUTROPHILS # (AUTO) 8.5 x10^3/uL (2.2-4.8); NEUTROPHILS % (AUTO) 63.2 % (42.0-75.0); PLATELET COUNT 235 X10^3/uL (150.0-450.0); RED BLOOD COUNT 4.53 X10^6/uL (4.7-6.0); WHITE BLOOD COUNT 13.4 X10^3/uL (3.6-10.0)
--- NOTE | 2018-09-06 06:27 | RAD ---
HISTORY: Shortness of breath, pneumonia Study: Chest AP portable Comparison: September 04, 2018, September 05, 2018, CT chest September 03, 2018 Findings: The heart is mildly enlarged. No congestive heart failure is noted. The lungs are hyperinflated but free of acute alveolar infiltrates. Emphysematous changes are present in the upper lobes. Interstitial lung changes are present in the lower lobes. The ill-defined irregular mass noted in the right upper lobe on the chest CT of September 03, 2018 is not as well demonstrated on plain film. PET-CT is recommended in order to distinguish between neoplasm and pleuro parenchymal scarring. Minimal right pleural effusion is present. No acute alveolar infiltrates are identified. The patient's hiatal hernia is not well demonstrated on this examination. The bony thorax is unremarkable with the exception of chronic rotator cuff disease on the right. IMPRESSION: Emphysematous COPD with bibasilar interstitial lung changes No acute infiltrates Ill-defined irregular density in the right lung apex as noted on the recent chest CT. PET-CT is recommended for further evaluation. Reported By:
[2018-09-06 06:46] LABS: CHLORIDE 100 mmol/L (98-107); SODIUM 139 mmol/L (136-145)
[2018-09-06 06:52] LABS: ANISOCYTOSIS 2+; HYPOCHROMASIA 2+; PLATELET MORPHOLOGY COMMENT NORMAL (NORMAL)
[2018-09-06 07:16] LABS: ALANINE AMINOTRANSFERASE 72 Units/L (12-78); ALBUMIN 2.9 g/dL (3.4-5.0); ALKALINE PHOSPHATASE 78 Units/L (46-116); ASPARTATE AMINO TRANSFERASE 48 Units/L (15-37); BLOOD UREA NITROGEN 25 mg/dL (7-18); CALCIUM 8.3 mg/dL (8.5-10.1); CARBON DIOXIDE 30.4 mmol/L (21-32); COR CA(FOR HYPOALB) 9.2 mg/dL (8.5-10.1); COR NA(FOR HYPERGLY) 139 mmol/L (136-145); CREATININE 1.11 mg/dL (0.70-1.30); TOTAL PROTEIN 5.6 g/dL (6.4-8.2); eGFR NON BLACK RACES > 60 (>60)
[2018-09-06] MEDS: LASIX IVP SCH (08:19)
[2018-09-06] MEDS: PROTONIX INJ 40 MG VIAL IVP SCH (08:19)
[2018-09-06] MEDS: PEPCID 20 MG IV PREMIX* 20 MG/50 ML BAG IV SCH (08:20)
[2018-09-06] MEDS: LANOXIN PO SCH (08:20)
[2018-09-06] MEDS: ROBITUSSIN DM PO SCH ×2 (08:20→14:26)
[2018-09-06] MEDS: NORVASC TAB 5 MG PO SCH (08:20)
[2018-09-06] MEDS: CARDIZEM SR 120 MG PO SCH (08:20)
[2018-09-06] MEDS: LEVAQUIN PREMIX IV 500 MG 500 MG/100 ML BAG IV SCH (08:23)
[2018-09-06] MEDS: LEVSIN/MAALOX/LIDOC VISC PO SCH ×2 (08:24→14:26)
[2018-09-06] MEDS: PULMICORT NEB TX 0.5 MG NEB SCH (08:47)
[2018-09-06 14:33] VITALS: BP 132/71
== END 2018-09-06 14:45 | disposition home or self-care (01) | DRG 178 ==
LOC: MED/SURG 10:23 → ICU 09-02 19:45
PROVIDERS: ADMIT Internal Medicine; ATTEND Internal Medicine
DX: R05 Cough; I51.7 Cardiomegaly; K44.9 Diaphragmatic hernia without obstruction or gangrene; R91.8 Other nonspecific abnormal finding of lung field; D64.89 Other specified anemias; I50.9 Heart failure, unspecified; J90 Pleural effusion, not elsewhere classified; I11.0 Hypertensive heart disease with heart failure; J15.6 Pneumonia due to other Gram-negative bacteria; J15.0 Pneumonia due to Klebsiella pneumoniae; J43.8 Other emphysema; I48.2 Chronic atrial fibrillation; R60.0 Localized edema; R06.02 Shortness of breath; R06.01 Orthopnea
CPT/HCPCS: 36415; 36430; 36600; 71010; 71020; 71045; 71046; 71260; 80053; 80162; 82270; 82378; 82550; 82553; 82803; 83735; 83880; 84132; 84484; 85014; 85018; 85025; 86850; 86900; 86901; 86922; 87040; 87070; 87077; 87186; 87205; 93005; 93306; 94640; 94760; A4222; C9113; P9016; S0028; J0713; J1160; J1200; J1940; J1956; J2920; J3490; J7040; J7050; J7613; J7626